=== PATIENT | female | born 1935 | race Caucasian/White ===

== ENCOUNTER → 2016-05-07 | Outpatient (CLI) | payer MEDICARE ==
[2014-09-10 12:29] VITALS: BP 123/62
[~2016-05-07] MED LIST: ALPR0.25 PO; ASPI81TA2 PO; CYCL10TA2 PO; FISH1CAP PO; HYDR-2678 PO; MELO-150 PO; MULT1TAB52 PO; ONDA8TAB9 PO
--- NOTE | 2016-05-07 12:27 | RAD ---
EXAM: Dual modality PET/CT. HISTORY: Lung cancer restaging. TECHNIQUE: PET/CT from the skull base to the proximal thighs was performed approximately 60 minutes following the intravenous administration of 14.2 mCi F-[address] images were obtained for attenuation correction purposes. The blood glucose level prior to tracer administration was 94 mg/dl. COMPARISON: 01/30/2016. FINDINGS: There are nodular, masslike and groundglass opacities within the left upper lobe with mildly increased tracer activity within maximum SUV of 2.4, not significantly changed compared to the prior study. There is slight increased tracer activity along the gastric mucosa, likely physiologic. There is no new region of tracer activity to suggest malignancy. The CT portion of the exam demonstrates stable nodular, masslike and groundglass opacities within the left upper lobe. There has been interval resolution of previously demonstrated suspected infectious or inflammatory changes within the left lower lobe. 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 There is mild cardiomegaly with a small pericardial effusion. There is coronary artery and aortic atherosclerosis and calcification of the aortic valve. There is a small hiatal hernia. The visualized portions of the brain are unremarkable. No pathologically enlarged lymph node is seen. No suspicious hepatic lesion is seen. The gallbladder, pancreas, spleen, adrenal glands and kidneys are unremarkable. There is colonic diverticulosis. The uterus, ovaries and bladder are unremarkable. There is no suspicious osseous lesion. There are advanced degenerative changes involving the spine. IMPRESSION: 1. Stable nodular, masslike and groundglass opacities within the left upper lobe with mildly increased tracer activity within maximum SUV of 2.4. The stability and agree of tracer activity favors post radiation change. There is no evidence to suggest progressive disease. Continued follow-up is recommended to exclude residual malignancy. 2. Resolution of recently demonstrated infectious or inflammatory changes within the left lower lobe. 3. Please refer to the above report for details regarding the PET portion of the exam.
== END | disposition home or self-care (01) ==
LOC: PETSC 08:10
PROVIDERS: ATTEND Internal Medicine Hematology & Oncology
DX: C34.92 Malignant neoplasm of unspecified part of left bronchus or lung (principal); I70.0 Atherosclerosis of aorta; I77.810 Thoracic aortic ectasia; I51.7 Cardiomegaly; I31.3 Pericardial effusion (noninflammatory); K44.9 Diaphragmatic hernia without obstruction or gangrene; K57.30 Diverticulosis of large intestine without perforation or abscess without bleeding
CPT/HCPCS: 78815; A9552

== ENCOUNTER → 2016-11-12 | Outpatient (CLI) | payer MEDICARE ==
[2014-09-10 12:29] VITALS: BP 123/62
[~2016-11-12] MED LIST changes: +ASPI-630 PO; -ASPI81TA2 PO; -MELO-150 PO; +MELO15TA23 PO
--- NOTE | 2016-11-12 09:57 | RAD ---
Indication restage lung malignancy. PET/CT was performed from the skull base through the proximal thigh. CT was performed primarily for localization and attenuation purposes as opposed to primary diagnostic purposes. Note is made of a previous examination May 07, 2016. 13 mCi of FDG was administered. The blood sugar during the examination was 109. On CT the visualized brain appears unremarkable. No significant finding is seen in the neck. There is parenchymal irregularity in the left upper lobe compatible with post radiation changes. The appearance is very similar to the previous exam. A new or unexpected finding in either lung is not seen. No acute or significant finding is seen in the abdomen or pelvis. Degenerative changes are noted in the lumbar spine. On PET the FDG is physiologically distributed in the head.. There is some increased activity in the thyroid gland. This is new relative to the previous exam. This is probably incidental but could be further evaluated with ultrasound if clinically warranted. Some low-level increased FDG uptake is seen in the area of parenchymal irregularity in the left lung, probably post radiation induced. Maximum SUV is approximately 3 similar to the previous exam. No unexpected uptake in the chest is seen. The FDG is physiologically distributed in the abdomen and pelvis IMPRESSION: No evidence of tumor recurrence or metastatic disease. Low level FDG uptake in the left upper lobe, compatible with post radiation changes, is noted. The appearance and uptake is similar to the previous exam Slightly increased uptake in the thyroid gland is of uncertain etiology or clinical significance. If additional imaging evaluation of the thyroid is warranted an ultrasound examination could be performed
== END | disposition home or self-care (01) ==
LOC: PETSC 07:34
PROVIDERS: ATTEND Internal Medicine Hematology & Oncology
DX: C34.92 Malignant neoplasm of unspecified part of left bronchus or lung (principal)
CPT/HCPCS: 78815; A9552

== ENCOUNTER → 2016-11-19 | Outpatient (CLI) | payer MEDICARE ==
[2014-09-10 12:29] VITALS: BP 123/62
--- NOTE | 2016-11-19 15:59 | RAD ---
Ultrasound thyroid 11/19/2016. Clinical indication: Left lobe thyroid nodule Comparison: PET/CT 11/12/2016 Findings: Right lobe of the thyroid measures 2.8 x 1.7 x 1.6 cm with mild diffuse heterogeneity and no discrete thyroid nodule. Left lobe of the thyroid measures 3.5 x 1.4 x 1.0 cm. There is a small cyst in the posterior-inferior left lobe of the thyroid measuring 0.8 x 0.7 x 0.6 cm. There is diffuse heterogeneity throughout the left lobe with no additional discrete nodule. Maximal AP thickness of the isthmus is 0.3 cm. There is completely occlusive thrombus throughout the visualized left IJ to the level of the confluence of the subclavian vein, below is obscured. Impression: 1. 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 This result was discussed with Kimberly Louie, nurse practitioner, affiliated with Dr. Garcia by telephone at 4:00 PM 11/19/2016. 2. Thyroid heterogeneity and small left lobe cyst which may correspond to prior PET/CT finding.
== END | disposition home or self-care (01) ==
LOC: US 15:18
PROVIDERS: ATTEND Internal Medicine Hematology & Oncology
DX: C34.90 Malignant neoplasm of unspecified part of unspecified bronchus or lung (principal); C04.1 Malignant neoplasm of lateral floor of mouth
CPT/HCPCS: 76536

== ENCOUNTER → 2017-05-19 | Outpatient (CLI) | payer OTHER | END | disposition home or self-care (01) | LOC: US 11:56 | DX: I82.890 Acute embolism and thrombosis of other specified veins (principal) | CPT/HCPCS: 93971 ==

== ENCOUNTER → 2017-07-05 | Outpatient (CLI) | payer OTHER ==
[2017-07-05 12:56] LABS: ISTAT CREATININE 0.8 mg/dL (0.6-1.1)
[2017-07-05] MEDS: GADOBUTROL 7.5 MMOL/7.5 ML VIAL IV (13:39)
== END | disposition home or self-care (01) ==
LOC: KCIC MRI 12:09
DX: C34.90 Malignant neoplasm of unspecified part of unspecified bronchus or lung (principal); M47.894 Other spondylosis, thoracic region; M41.84 Other forms of scoliosis, thoracic region
CPT/HCPCS: 72157; 82565; A9585

== ENCOUNTER → 2017-10-07 | Outpatient (CLI) | payer OTHER | END | disposition home or self-care (01) | LOC: KCIC US 15:21 | DX: R22.1 Localized swelling, mass and lump, neck (principal); Z85.118 Personal history of other malignant neoplasm of bronchus and lung; Z86.718 Personal history of other venous thrombosis and embolism | CPT/HCPCS: 93971 ==

== ENCOUNTER → 2017-11-18 | Outpatient (CLI) | payer OTHER | END | disposition home or self-care (01) | LOC: PETSC 07:47 | DX: C34.92 Malignant neoplasm of unspecified part of left bronchus or lung (principal); R60.9 Edema, unspecified | CPT/HCPCS: 78815; A9552 ==

== ENCOUNTER → 2018-03-03 | Outpatient (CLI) | payer OTHER ==
[2014-09-10 12:29] VITALS: BP 123/62
--- NOTE | 2018-03-03 11:03 | RAD ---
FDG tumor localization scan, PET/CT, 03/03/2018: History: Restaging lung cancer Following IV injection of 14.2 mCi of 18 F-FDG, imaging was performed from the skull base to the proximal thighs. The noncontrast CT component was performed for attenuation correction and anatomic localization purposes rather than for primary diagnosis. The patient's blood glucose level to time injection was 93 MG/DL. Comparison is made to a study from 11/18/2017. Irregular streaky opacities persist extending from the left hilum anterolaterally to the pleura in the left upper lobe. There has been no definite interval change on the CT component. The maximum SUV within this process is currently 3.0 compared to a value of 3.9 on the previous study. This minor difference may be on a technical basis. There is no evidence of progression. There is also slightly increased activity involving the adjacent chest wall, probably representing postradiation change. Physiologic activity is evident in the esophagus. No definite hypermetabolic mediastinal adenopathy is seen. Normal GI tract and urinary tract activity is present in the abdomen and pelvis. No hypermetabolic abdominal or pelvic lesion is seen. Physiologic activity is evident in the neck. No hypermetabolic neck lesion is identified. Incidental CT findings include the presence of moderate coronary artery calcifications. A few scattered colonic diverticula are evident. A trace amount of pericardial fluid is noted. IMPRESSION: 1. Low level FDG uptake within the left suprahilar pulmonary opacities is similar to that evident on the 11/18/2017 study. 2. No new FDG PET abnormality is detected.
== END | disposition home or self-care (01) ==
LOC: PETSC 09:10
PROVIDERS: ATTEND Internal Medicine Hematology & Oncology
DX: C34.92 Malignant neoplasm of unspecified part of left bronchus or lung (principal); K57.30 Diverticulosis of large intestine without perforation or abscess without bleeding
CPT/HCPCS: 78815; A9552

== ENCOUNTER → 2018-09-01 | Outpatient (CLI) | payer OTHER ==
[2014-09-10 12:29] VITALS: BP 123/62
--- NOTE | 2018-09-01 09:50 | RAD ---
FDG tumor localization scan, PET/CT, 09/01/2018: History: Restaging lung cancer Following IV injection of 12.4 mCi of 18 F-FDG, imaging was performed from the skull base to the proximal thighs. The noncontrast CT component was performed for attenuation correction and anatomic localization purposes rather than for primary diagnosis. The patient's blood glucose level at the time of injection was 98 MG/DL. Comparison is made to a study from 03/03/2018. Physiologic activity is present in the neck. No abnormal FDG uptake is seen in the neck. There are streaky parenchymal opacities in the left upper lobe in the suprahilar region extending superiorly. There is increased FDG uptake within these densities with a maximum SUV of 2.9. Similar findings were present on the previous study at which time the maximum SUV was 3.0. No other abnormal pulmonary uptake is seen. There is increased activity in the esophagus, also evident on the previous study. Chronic inflammation is suspected. There is a small focus of increased activity at the subcarinal level adjacent to the esophagus which has been present in retrospect on previous studies including a PET/CT study from 08/08/2015. Its maximum SUV is 3.9. There is an adjacent dense calcified lymph node. Its stability favors a benign etiology. No new mediastinal abnormality is seen. Normal GI tract and urinary tract activity is present in the abdomen and pelvis. No hypermetabolic abdominal or pelvic lesion is seen. IMPRESSION: Stable FDG PET/CT exam.
== END | disposition home or self-care (01) ==
LOC: PETSC 07:29
PROVIDERS: ATTEND Internal Medicine Hematology & Oncology
DX: C34.92 Malignant neoplasm of unspecified part of left bronchus or lung (principal); I89.8 Other specified noninfective disorders of lymphatic vessels and lymph nodes; Z88.1 Allergy status to other antibiotic agents
CPT/HCPCS: 78815; A9552

== ENCOUNTER → 2019-09-04 | Outpatient (CLI) | payer MEDICARE ==
[2014-09-10 12:29] VITALS: BP 123/62
--- NOTE | 2019-09-04 13:10 | RAD ---
Noncontrast CT scan of the chest compared to PET/CT scan dated September 01, 2018 for squamous cell carcinoma of the left lung. TECHNIQUE: Contiguous helical 5 mm axial images are obtained from the thoracic inlet to the base of diaphragm. Sagittal and coronal reformations are evaluated. FINDINGS: Extensive posttreatment pleural-parenchymal scarring extending from the left hilum to the left anterior upper chest wall is redemonstrated and appears grossly unchanged. There is a 5 mm nodule in the left lung apex just superior medial to the pleural parenchymal scarring, seen on series #2 axial image #10, which is grossly stable as well. Continued attention to this nodule on surveillance studies is recommended however. Tiny 3 mm nodule in the right upper lung on series 2 axial image #17 is stable and likely benign. No new lung nodules or masses are seen. Calcified hilar and mediastinal adenopathy consistent with antecedent radiologist disease is unchanged from the prior study. No new or suspicious mediastinal, hilar, or axillary lymphadenopathy is seen. Extensive coronary artery calcifications are again noted. There is ectatic dilatation of the ascending aorta grossly unchanged, measuring 4.3 x 4.2 cm. This is stable. Evaluation of the upper abdominal organs is limited by lack of IV contrast, however no morphologic abnormalities are seen. There are multilevel degenerative changes the spine. There is a vague area of breast tissue seen on series 2, axial image #27, immediately deep to a coarse calcification, which appears more confluent and masslike than on the prior examination, though it has not changed significantly in size. This may be due to variation in imaging technique between the prior PET scan and the current study, however developing breast mass cannot be excluded. Consider mammography. IMPRESSION: 1. Stable pleural parenchymal scarring left upper lobe with no evidence of locally recurrent or metastatic disease. 2. Stable 5 mm left apical lung nodule, likely benign. Attention on routine follow-up imaging is encouraged however. 3. 1.3 cm masslike abnormality in the left breast, which appears more confluent than on the prior PET CT scan. This may be benign breast tissue, but could also reflect a developing breast mass. Further evaluation with mammography is recommended. 4. Changes of antecedent granulomas disease. 5. Stable ascending aortic ectasia. 6. Extensive coronary artery disease in multiple distributions. PQRS Compliance Statement: One or more of the following individualized dose reduction techniques were utilized for this examination: 1. Automated exposure control 2. Adjustment of the mA and/or kV according to patient size 3. Use of iterative reconstruction technique Electronically signed by: Venancio Rice MD (09/04/2019 1:07 PM) [id number]
== END | disposition home or self-care (01) ==
LOC: CT 10:06
PROVIDERS: ATTEND Internal Medicine Hematology & Oncology
DX: C34.92 Malignant neoplasm of unspecified part of left bronchus or lung (principal); J44.9 Chronic obstructive pulmonary disease, unspecified; R91.1 Solitary pulmonary nodule; J98.4 Other disorders of lung; I25.10 Atherosclerotic heart disease of native coronary artery without angina pectoris; F17.200 Nicotine dependence, unspecified, uncomplicated; Z79.01 Long term (current) use of anticoagulants; Z92.21 Personal history of antineoplastic chemotherapy
CPT/HCPCS: 71250

== ENCOUNTER → 2020-03-29 | Outpatient (CLI) | payer MEDICARE ==
[2014-09-10 12:29] VITALS: BP 123/62
[~2020-03-29] MED LIST changes: +LIDOCAINE 1% Multi-Dose 20 ML VIAL. INJ ONE; +MULT-445 PO; -MULT1TAB52 PO
--- NOTE | 2020-03-29 11:06 | RAD ---
Examination: 1. Ultrasound-guided left breast core needle biopsy. 2. Left digital postprocedure mammogram. INDICATION: Suspicious irregular hypoechoic mass measuring 1.5 x 1.0 cm, recommended for ultrasound-guided core needle biopsy. COMPARISON: Left breast ultrasound examinations of 09/20/2019 and 03/18/2020, chest CT of 09/04/2019. TECHNIQUE AND FINDINGS: Informed consent was obtained and an appropriate procedural pause observed. Stent using standard sterile technique, ultrasound guidance and local anesthesia, 3 core biopsy samples of the mass in the posterior upper outer quadrant left breast were obtained and placed in formalin. An S-shaped biopsy marker was placed in the lesion and hemostasis ensured with direct breast compression for several minutes. A digital left postprocedure mammogram after puncture site dressing reveals satisfactory positioning of the biopsy marker in the area of suspicion in the posterior upper outer left breast. No post biopsy hematoma. There are associated microcalcifications Postprocedure instructions were reviewed and patient discharged in stable condition to follow her referring physician. IMPRESSION: Successful ultrasound-guided left breast core needle biopsy with satisfactory biopsy marker placement. Pathology results are pending. An addendum will be issued once pathology results become available. Electronically signed by: Latonia Bishop MD (03/29/2020 11:03 AM) [email or web address]
--- NOTE | 2020-04-01 17:07 | PATHOLOGY ---
[facility] Accession Number: [id number] . 01 Material submitted: . breast - LEFT BREAST TISSUE, 100, 4CMFN. Modifiers: left, 1:00 . 01 Clinical history: . ABNORMAL MAMMOGRAM LEFT . 02 Diagnosis: Breast tissue, left breast mass 1:00 needle biopsies: - INVASIVE DUCTAL CARCINOMA, HIGH GRADE. SEE COMMENT. (JPM:moon; 04/01/2020) MBR 04/01/2020 1611 Local . 02 Comment: Sections of the left breast mass at 1:00 needle biopsy reveal an invasive mammary carcinoma. The tumor shows little tubule formation and is associated with a reactive desmoplastic stroma. Tumor cells show moderate to marked nuclear pleomorphism. Mitotic figures are readily demonstrated. There is a focus of high-grade ductal carcinoma in situ with central comedo-type necrosis. The invasive carcinoma measures up to 5 mm in greatest dimension on the glass slide. There is no lymphovascular tumor invasion. There is focal sclerosing adenosis. There are calcifications associated with invasive carcinoma, DCIS, and sclerosing adenosis. The case is also examined by Dr. Rojas, who concurs with the diagnosis. Breast prognostic studies will be obtained on block A2, the results of which will be reported separately. (MELODYM:moon; 04/01/2020) . 02 Electronically signed: . Eron Saucedo MD, Pathologist NPI- [id number] . 01 Gross description: . The specimen is received in formalin, labeled "Brandi Fox, left breast 1:00 4 cm from nipple". Received are multiple needle cores of fibrofatty tissue measuring 1.2 x 0.6 x 0.2 cm in aggregate dimensions. The specimen is submitted entirely in cassettes A1 through A3. The cold ischemic time is 1 minute. The total formalin fixation time is 12 hours and 18 minutes. (CAA; 03/29/2020) QAC/QAC 03/29/2020 1649 Local . 02 Pathologist provided ICD-10: C50.912 . 02 CPT . 930481 Specimen Comment: A courtesy copy of this report has been sent to [phone], [phone] Specimen Comment: [phone], Specimen Comment: Report sent to ,DR BUTCHER / DR KYLE Performed at: 01 [facility] [address] [facility] [address], [place] [id number] MD Klever Loera MD Phone: [phone] Performed at: 02 [facility] [address] [place] [id number] MD Eron Saucedo MD Phone: [phone]
== END | disposition home or self-care (01) ==
LOC: US 09:09
PROVIDERS: ATTEND Internal Medicine Hematology & Oncology
DX: R92.8 Other abnormal and inconclusive findings on diagnostic imaging of breast (principal); R92.0 Mammographic microcalcification found on diagnostic imaging of breast; C50.912 Malignant neoplasm of unspecified site of left female breast; J44.9 Chronic obstructive pulmonary disease, unspecified; Z87.891 Personal history of nicotine dependence; Z79.82 Long term (current) use of aspirin; Z79.899 Other long term (current) drug therapy; Z88.1 Allergy status to other antibiotic agents; Z98.890 Other specified postprocedural states
CPT/HCPCS: 19083; 77065; 88305; 88361; C1713; J3490; 19081; 76942